=== PATIENT | male | born 1990 | race Caucasian/White ===

== ENCOUNTER 2018-05-19 09:24 | Inpatient (IN) | payer OTHER ==
[~2018-05-19] VITALS: Ht 177.8 cm; Wt 139.3 kg
[2018-05-19] VITALS (14 sets, daily range): BP systolic 135–179; BP diastolic 67–93
[2018-05-19] MEDS ORDERED: LISINOPRIL20 MG PO (09:50)
[2018-05-19] MEDS ORDERED: PROTONIX40 M1 PO (09:52)
[2018-05-19 10:15] LABS: HEMATOCRIT 41.3 % (42.0-52.0); MCH 22.4 pg (26.0-34.0); MCHC 31.4 g/dL (28.0-37.0); MCV 71.3 fL (80.0-100.0); MPV 7.9 fl. (7.2-11.1); NUCLEATED RBCS 0 /100WBC; PLATELET COUNT* 204 thou/uL (150-400); RDW-CV 20.5 % (10.5-14.5); WBC 17.9 thou/uL (4.0-11.0)
[2018-05-19 10:23] LABS: CALCIUM 9.3 mg/dL (8.5-10.1); CREATININE 0.9 mg/dL (0.6-1.3); POTASSIUM 3.3 mmol/L (3.5-5.1)
[2018-05-19 10:24] LABS: APTT 24.6 Seconds (25.0-31.3); INR 1.1
[2018-05-19 10:27] LABS: ALBUMIN 4.2 g/dL (3.4-5.0); TOTAL BILIRUBIN 1.4 mg/dL (<0.1-1.0)
[2018-05-19 10:47] LABS: ABSOLUTE LYMPHOCYTES 0.7 thou/uL (0.8-5.3); ABSOLUTE MONOCYTES 0.2 thou/uL (0.0-1.2)
[2018-05-19 10:48] LABS: ANISOCYTOSIS 2+; HYPOCHROMASIA 1+; MICROCYTES 2+; PLATELET ESTIMATE ADEQUATE; POLYCHROMASIA 1+
[2018-05-19 11:01] LABS: ACETAMINOPHEN < 2 ug/mL (10-30); ALCOHOL < 10 mg/dL (<10)
[2018-05-19 14:18] LABS: HEMATOCRIT 36.1 % (42.0-52.0); HEMOGLOBIN 11.3 gm/dL (14.0-18.0)
[2018-05-19 16:25] LABS: HEMATOCRIT 35.2 % (42.0-52.0); MCH 22.5 pg (26.0-34.0); MCHC 31.2 g/dL (28.0-37.0); MCV 72.2 fL (80.0-100.0); MPV 8.5 fl. (7.2-11.1); RBC 4.87 mil/uL (4.50-6.00); RDW-CV 20.7 % (10.5-14.5); WBC 7.4 thou/uL (4.0-11.0)
--- NOTE | 2018-05-19 16:41 | EKG ---
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 : 1990 Requested By: Gualberto Blood Order Number: [id number] MD: Mathieu Amaro Measurements Intervals [place] Rate: 121 P: 35 [place]: 141 QRS: 9 QRSD: 94 T: -20 QT: 356 QTc: 505 Interpretive Statements Sinus tachycardia poor r wave progression LVH by voltage Nonspecific T abnormalities, inferior leads Prolonged QT interval No previous ECG available for comparison Electronically Signed On 05-19-2018 16:41:50 CDT by Mathieu Amaro [email or web address] <ELECTRONICALLY SIGNED> By: Mathieu Amaro MD, [facility] 05/19/18 1641 1005 1005 Mathieu Amaro MD, [facility] /EPI
[2018-05-19] MEDS ORDERED: PROZAC20 MG PO (18:37)
[2018-05-19] MEDS ORDERED: CLONAZEPAM 1 MG1 M1 PO (18:38)
[2018-05-19 19:48] LABS: URINE BILIRUBIN NEGATIVE (Negative); URINE BLOOD TRACE (Negative); URINE CLARITY CLEAR; URINE COLOR YELLOW; URINE GLUCOSE-RANDOM NEGATIVE (Negative); URINE KETONES 1+ (Negative); URINE LEUKOCYTES-REFLEX NEGATIVE (Negative); URINE NITRITE-REFLEX NEGATIVE (Negative); URINE PROTEIN NEGATIVE (Negative)
[2018-05-20] VITALS (22 sets, daily range): BP systolic 118–169; BP diastolic 66–100
[2018-05-20 04:14] LABS: HEMATOCRIT 33.6 % (42.0-52.0); HEMOGLOBIN 10.6 gm/dL (14.0-18.0); MCH 22.9 pg (26.0-34.0); MCHC 31.5 g/dL (28.0-37.0); MCV 72.7 fL (80.0-100.0); MPV 8.2 fl. (7.2-11.1); RBC 4.62 mil/uL (4.50-6.00); RDW-CV 20.5 % (10.5-14.5); WBC 6.1 thou/uL (4.0-11.0)
[2018-05-20 04:40] LABS: CREATININE 0.7 mg/dL (0.6-1.3); MAGNESIUM 2.2 mg/dL (1.8-2.4); POTASSIUM 3.8 mmol/L (3.5-5.1)
[2018-05-20 09:06] LABS: ALBUMIN 3.2 g/dL (3.4-5.0); CALCIUM 8.2 mg/dL (8.5-10.1); CREATININE 0.7 mg/dL (0.6-1.3); POTASSIUM 3.7 mmol/L (3.5-5.1); TOTAL BILIRUBIN 2.2 mg/dL (<0.1-1.0); TOTAL PROTEIN 7.1 g/dL (6.4-8.2)
[2018-05-20 14:25] LABS: HEMATOCRIT 33.4 % (42.0-52.0); HEMOGLOBIN 10.4 gm/dL (14.0-18.0)
[2018-05-21] VITALS: BP 145/77
[2018-05-21 04:00] VITALS: BP 122/77
[2018-05-21 05:01] LABS: ALBUMIN 3.2 g/dL (3.4-5.0); CALCIUM 7.9 mg/dL (8.5-10.1); CREATININE 0.7 mg/dL (0.6-1.3); HEMATOCRIT 32.4 % (42.0-52.0); HEMOGLOBIN 10.2 gm/dL (14.0-18.0); MAGNESIUM 1.6 mg/dL (1.8-2.4); MCH 22.9 pg (26.0-34.0); MCHC 31.4 g/dL (28.0-37.0); MCV 72.8 fL (80.0-100.0); MPV 8.5 fl. (7.2-11.1); POTASSIUM 3.5 mmol/L (3.5-5.1); RBC 4.45 mil/uL (4.50-6.00); RDW-CV 20.7 % (10.5-14.5); TOTAL BILIRUBIN 1.7 mg/dL (<0.1-1.0); TOTAL PROTEIN 6.8 g/dL (6.4-8.2); WBC 8.9 thou/uL (4.0-11.0)
[2018-05-21 11:50] VITALS: BP 151/104
[2018-05-21 15:16] VITALS: BP 133/70
[2018-05-21 20:00] VITALS: BP 126/64
[2018-05-21 23:59] VITALS: BP 139/84
[2018-05-22 04:00] VITALS: BP 154/99
[2018-05-22 04:55] LABS: HEMATOCRIT 32.7 % (42.0-52.0); HEMOGLOBIN 10.2 gm/dL (14.0-18.0); MCH 23.2 pg (26.0-34.0); MCHC 31.3 g/dL (28.0-37.0); MCV 73.9 fL (80.0-100.0); MPV 8.7 fl. (7.2-11.1); RBC 4.43 mil/uL (4.50-6.00); RDW-CV 20.3 % (10.5-14.5); WBC 8.9 thou/uL (4.0-11.0)
[2018-05-22 05:10] LABS: CREATININE 0.8 mg/dL (0.6-1.3); MAGNESIUM 1.5 mg/dL (1.8-2.4); POTASSIUM 3.8 mmol/L (3.5-5.1)
[2018-05-22 08:30] VITALS: BP 143/94
[2018-05-22] MEDS ORDERED: PROTONIX40 M1 PO (10:03)
[2018-05-22 10:27] VITALS: BP 143/94
[2018-05-22 11:23] VITALS: BP 143/94
== END 2018-05-22 11:15 | disposition home or self-care (01) | DRG 378 ==
LOC: M.ERS 09:24 → M.TBA-ER 11:13 → M.ICU 11:13 → M.2W 05-20 15:39
PROVIDERS: Family Medicine; Internal Medicine Gastroenterology; ADMIT Internal Medicine
PROC: 0W3P8ZZ Control Bleeding in Gastrointestinal Tract, Via Natural or Artificial Opening Endoscopic (ICD-10-PCS; principal; 2018-05-20)
PROC: 3E0G8GC Introduction of Other Therapeutic Substance into Upper GI, Via Natural or Artificial Opening Endoscopic (ICD-10-PCS; principal; 2018-05-20)
DX: K25.0 Acute gastric ulcer with hemorrhage (principal); Z68.41 Body mass index [BMI] 40.0-44.9, adult; I10 Essential (primary) hypertension; K31.82 Dieulafoy lesion (hemorrhagic) of stomach and duodenum; E11.9 Type 2 diabetes mellitus without complications; F32.9 Major depressive disorder, single episode, unspecified; F41.9 Anxiety disorder, unspecified; E66.9 Obesity, unspecified; F10.10 Alcohol abuse, uncomplicated; K21.0 Gastro-esophageal reflux disease with esophagitis; K70.10 Alcoholic hepatitis without ascites; G47.33 Obstructive sleep apnea (adult) (pediatric); S93.401A Sprain of unspecified ligament of right ankle, initial encounter; X58.XXXA Exposure to other specified factors, initial encounter; Y93.89 Activity, other specified; Y92.098 Other place in other non-institutional residence as the place of occurrence of the external cause; Y99.8 Other external cause status; Z79.899 Other long term (current) drug therapy; Z83.3 Family history of diabetes mellitus

== ENCOUNTER 2018-06-02 07:25 | Inpatient (IN) | payer OTHER ==
[~2018-06-02] VITALS: Ht 177.8 cm; Wt 139.7 kg
[2018-06-02] VITALS (9 sets, daily range): BP systolic 134–160; BP diastolic 71–102
[~2018-06-02 07:25] MED LIST: CLONAZEPAM 1 MG1 M1 PO; LISINOPRIL20 MG PO; PROTONIX40 M1 PO; PROZAC20 MG PO
[2018-06-02 07:58] LABS: ANION GAP 27 mmol/L (7-16); BUN 7 mg/dL (7-18); CALCIUM 9.7 mg/dL (8.5-10.1); CHLORIDE 99 mmol/L (98-107); CREATININE 1.3 mg/dL (0.6-1.3); GLUCOSE 162 mg/dL (70-99); POTASSIUM 3.8 mmol/L (3.5-5.1); SODIUM 137 mmol/L (136-145)
[2018-06-02 08:01] LABS: CO2 11 mmol/L (21-32)
[2018-06-02 08:02] LABS: ALBUMIN 4.7 g/dL (3.4-5.0); ALKALINE PHOSPHATASE 316 U/L (46-116); SGOT 131 U/L (15-37); SGPT 180 U/L (30-65); TOTAL BILIRUBIN 2.1 mg/dL (<0.1-1.0); TOTAL PROTEIN 10.2 g/dL (6.4-8.2); TROPONIN-I LEVEL <0.06 ng/mL (<0.06)
[2018-06-02 08:16] LABS: HEMATOCRIT 46.7 % (42.0-52.0); MCH 22.9 pg (26.0-34.0); MCHC 29.9 g/dL (28.0-37.0); MCV 76.4 fL (80.0-100.0); MPV 8.1 fl. (7.2-11.1); NUCLEATED RBCS 0 /100WBC; PLATELET COUNT* 324 thou/uL (150-400); RDW-CV 21.3 % (10.5-14.5); WBC 19.3 thou/uL (4.0-11.0)
[2018-06-02 08:35] LABS: ABSOLUTE BASOPHILS 0.2 thou/uL (0.0-0.2); ABSOLUTE EOSINOPHILS 0.4 thou/uL (0.0-0.7); ABSOLUTE MONOCYTES 1.2 thou/uL (0.0-1.2); ABSOLUTE NEUTROPHILS 11.6 thou/uL (1.6-8.1)
[2018-06-02 08:36] LABS: ANISOCYTOSIS 1+; HYPOCHROMASIA Occasional; MICROCYTES Occasional; PLATELET ESTIMATE ADEQUATE; POIKILOCYTOSIS 1+; POLYCHROMASIA Occasional
[2018-06-02 08:37] LABS: BE -5.7 mmol/L (-2 to +3); HCO3 18.8 mmol/L (22.0-26.0); PCO2 33.9 mmHg (35.0-45.0); pH 7.361 (7.340-7.450)
[2018-06-02 08:38] LABS: PO2 128.7 mmHg (75.0-100.0)
--- NOTE | 2018-06-02 08:45 | NUR ---
PT REPORTED TO DR. ISBELL THAT HE DRINKS TOO MUCH, LAST TIME DRINKING WAS 2 DAYS AGO, DENIES HX OF SEIZURES.
--- NOTE | 2018-06-02 09:08 | NUR ---
PT'S FATHER, NOVA TELLES, CALLED TO CHECK ON PATIENT. AFTER AQUIRING PT CONSENT TO GIVEN HIS FATHER INFORMATION ABOUT PT STAY, NOVA WAS TOLD THAT PT IS A&O X4 AND C/O BACK PAIN, WELL PT WILL BE ADMITTED. PT'S FATHER STATED THAT ONLY ELIZABETH IRENE AND HIMSELF SHOULD RECEIVE ANY PATIENT INFO. PT'S FATHER'S NUMBER IS [phone], REQUESTS TO BE CALLED IF ANY MAJOR CHANGES IN PATIENT HEALTH.
[2018-06-02 10:02] LABS: URINE BILIRUBIN NEGATIVE (Negative); URINE BLOOD 2+ (Negative); URINE CLARITY CLEAR; URINE COLOR YELLOW; URINE GLUCOSE-RANDOM NEGATIVE (Negative); URINE KETONES 1+ (Negative); URINE LEUKOCYTES-REFLEX NEGATIVE (Negative); URINE NITRITE-REFLEX NEGATIVE (Negative); URINE PROTEIN 2+ (Negative); URINE SPECIFIC GRAVITY 1.025 (1.005-1.030); URINE UROBILINOGEN 0.2 E.U./dl (0.2-1.0)
[2018-06-02 10:13] LABS: AMP/METHAMP Negative (Negative); BARBITURATES Negative (Negative); BENZODIAZEPINES Negative (Negative); COCAINE Negative (Negative); METHADONE Negative (Negative); OPIATES Negative (Negative); PCP Negative (Negative); THC POSITIVE (Negative)
[2018-06-02 10:56] LABS: BACTERIA-REFLEX 1-9 Few /HPF (None Seen); SQUAMOUS 4-10 Moderate /LPF (0-3); URINE RBC 3-10 Few /HPF (0-2); URINE WBC-REFLEX 0-5 Rare /HPF (0-5)
[2018-06-02 10:57] LABS: CRYSTALS None Seen /LPF (None Seen); HYALINE CASTS 0-3 Few /LPF (None Seen)
--- NOTE | 2018-06-02 12:54 | NUR ---
PT ADMITTED FROM ER FOR ETOH WITHDRAWL WITH SEIZURE. SEIZURE PRECAUTIONS INITIATED. PADS PLACED ON BED RAILS. IV FLUIDS INFUSING WELL. PT VERY DROWSY. FELL ASLEEP FREQUNTLY DURING ASSESSMENT. CIWA SCORES 7 X2. NEUROLOGY HERE TO SEE PT. EEG COMPLETED. FALL PRECAUTIONS IN PLACE INCLUDING BED ALARM.
--- NOTE | 2018-06-02 14:46 | NUR ---
1400 ASSUMED CARE OF PATIENT. TO RADIOLOGY PER WHEELCHAIR ACCOMPANIED BY RN. PT ABLE TO TRANSFER SLOWLY BUT STEADILY FROM WHEELCHAIR TO BED. SPOUSE AT BEDSIDE.
--- NOTE | 2018-06-02 15:04 | NUR ---
X RAY RESULTS TO DR CARRILLO. ORDERS NOTED. SPOUSE FILLING OUT MRI QUESTIONAIRRE
--- NOTE | 2018-06-02 16:15 | NUR ---
1520 TO MRO PER WHEELCHAIR ACCOMPANIED BY RN. ABLE TO ONLY COMPLETE PART OF MRI DUE TO PT C/O "BURNING OF SKIN,ITCHY,ANXIOUS." MRI EDITED FOR TOMORROW. DISCUSSED WITH PATIENT THE INDICATIONS FOR MRI. HE IS WILLING TO TRY AGAIN TOMORROW
--- NOTE | 2018-06-02 17:01 | NUR ---
REPORT TO JACQUIE [place]
--- NOTE | 2018-06-02 17:58 | EKG ---
[place] [address] ELECTROCARDIOGRAM REPORT Name: ROHIT IRENE Room: [address] ADM IN [facility]#: [id number] Admission: 06/02/18 Attend Phys: Romaine Arrington MD Discharge: Date of : 86 Report #: [id number] THIS REPORT FOR: //name// [facility] ED Test Date: 2018-06-02 Test Time: 07:38:52 Pat Name: ROHIT IRENE Department: Room: [facility] Gender: Deadener: Roderick QUILES : 1990 Requested By: Tim Mina Order Number: [id number] MD: Shailesh Fischer Measurements Intervals [place] Rate: 125 P: 65 [place]: 113 QRS: 20 QRSD: 94 T: 0 QT: 351 QTc: 507 Interpretive Statements Sinus tachycardia Borderline T abnormalities, inferior leads Prolonged QT interval Baseline wander in lead(s) II,V1 Compared to ECG 05/19/2018 10:05:02 Poor R-wave progression no longer present Left ventricular hypertrophy no longer present T-wave abnormality still present Electronically Signed On 06-02-2018 17:58:10 CDT by Shailesh Fischer [email or web address] <ELECTRONICALLY SIGNED> By: Shailesh Fischer MD, FACC 06/02/18 1758 7 7 Shailesh Fischer MD, FACC /EPI
--- NOTE | 2018-06-02 18:21 | NUR ---
RN RESUMED CARE OF PT THIS EVENING. PT SLOWLY PROGRESSING TOWARDS GOALS. PT IS LETHARGIC, AROUSES TO VOICE, OBEYS COMMANDS. PT DENIES PAIN AT THIS TIME. NO SEIZURE LIKE ACTIVITY NOTED. SEIZURE PRECAUTIONS REMAIN IN PLACE. BED ALARM ON. VSS. ON 2L NC AND AFEBRILE. NO FAMILY AT BEDSIDE. PT DENIES FURTHER QUESTIONS/CONCERNS.
[2018-06-03] VITALS (12 sets, daily range): BP systolic 118–179; BP diastolic 72–101
[2018-06-03 02:35] LABS: ABSOLUTE BASOPHILS 0.1 thou/uL (0.0-0.2); ABSOLUTE EOSINOPHILS 0.2 thou/uL (0.0-0.7); ABSOLUTE LYMPHOCYTES 1.7 thou/uL (0.8-5.3); ABSOLUTE MONOCYTES 0.5 thou/uL (0.0-1.2); ABSOLUTE NEUTROPHILS 5.4 thou/uL (1.6-8.1); EOSINOPHILS 2.3 %; HEMATOCRIT 35.8 % (42.0-52.0); LYMPHOCYTES 21.5 %; MCH 22.9 pg (26.0-34.0); MCHC 31.3 g/dL (28.0-37.0); MCV 73.3 fL (80.0-100.0); MONOCYTES 6.7 %; MPV 7.4 fl. (7.2-11.1); NUCLEATED RBCS 0 /100WBC; POLYS 68.5 %; RBC 4.88 mil/uL (4.50-6.00); RDW-CV 20.9 % (10.5-14.5); WBC 7.9 thou/uL (4.0-11.0)
[2018-06-03 03:13] LABS: CALCIUM 7.9 mg/dL (8.5-10.1); CREATININE 0.6 mg/dL (0.6-1.3); POTASSIUM 3.2 mmol/L (3.5-5.1)
[2018-06-03 03:16] LABS: HEMOGLOBIN 11.2 gm/dL (14.0-18.0); PLATELET COUNT* 168 thou/uL (150-400)
[2018-06-03 03:47] LABS: ANISOCYTOSIS 1+; HYPOCHROMASIA 2+; MACROCYTES Occasional; MICROCYTES 1+; OVALOCYTES Occasional; SCHISTOCYTES Occasional; TEARDROPS Occasional
--- NOTE | 2018-06-03 05:02 | NUR ---
ASSUMED CARE OF PT AT 1900 PT ALERT AND ORIENTED X4 VS AND ASSESSMENT STABLE. PT RUNNING NS TO ST ON THE TELE MONITOR. CIWAS Q2H HAVE REMAINED AT 4. PT C/O BACK PAIN NOT RELIEVED BY OXYCODONE OBTAINED ORDERS FOR PRN IBUPROFEN AND ADMINISTERED X 1 THEN PT SLEPT THROUGH THE NIGHT AND ONLY AWOKE ONCE FOR PRN OXYCODONE PROVIDED HEAT PACK FOR PT THEN PT SLEPT THE REST OF THE NIGHT. WILL CONTINUE PLAN OF CARE.
--- NOTE | 2018-06-03 08:20 | NUR ---
PATIENT CARE ASSUMED AT 0700. PATIENT RESTING WITH EYES CLOSED IN BED UPON ASSUMING CARE. AWOKEN TO VOICE. PATIENT REPORTS HEADACHE/BACK PAIN. PRN TYLENOL AND OXY IR GIVEN PER PATIENT REQUEST. AWAITING RESULTS. CIWA 1 AT THIS TIME FOR HEADACHE, BUT DENIES ALL OTHER SYMPTOMS. AOX4. PATIENT CONCERNT THIS MORNING IS TO HAVE A SHOWER. BILINGUAL CUSTOMER SERVICE NOTIFIED, SKI EDGE PAINTER COMING TO ICU TO TAKE PATIENT TO TELEMETRY FLOOR TO SHOWER. REPORTS NO APPETITE, REFUSING BREAKFAST TRAY AT THIS TIME. BG 116. OTHERWISE CALM, COOPERATIVE. DENIES NEW CONCERNS ABOUT PATIENT CARE. WILL CONTINUE WITH CURRENT PLAN OF CARE.
--- NOTE | 2018-06-03 09:46 | NUR ---
Nutrition: Consult received for diet instruction. Pt admitted with ETOH w/d. H/o ETOHism (1.5L per day), PUD w/ hemorrhage, hiatal hernia, OBE, HTN. Wt fluctuating ~300#. Albumin 4.7. No appetite, refused BKFST. C/o RODRIGUES and back pain. Per progress notes, pt wants inpatient ETOH rehab. Will defer nutrition education at this time. Hopeful pt can go to inpatient rehab. RECOMMEND MVI. Poor nutrition quality of life R/T lifestyle AEB ETOHism.
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
--- NOTE | 2018-06-03 12:34 | CON ---
[address] [address] CONSULTATION Name: ROHIT IRENE Room: [address] IN .R.#: [id number] Admission: 06/02/18 Attend Phys: Romaine Arrington MD Discharge: Date of : 86 Report #: [id number] THIS REPORT FOR: //name// CC: Romaine Arrington [facility] physician/PCP DATE OF SERVICE: 06/02/2018 HISTORY OF PRESENT ILLNESS: This is a 27-year-old male patient who was evaluated by me for seizure. He indicated that he had a seizure yesterday. He does not remember anything about that seizure. I reviewed the records from the Emergency Room and it looks like the patient was foaming at the mouth. He was in postictal state. He feels back to his baseline. He has an extensive history of alcohol abuse. REVIEW OF SYSTEMS: Indicates that he was diagnosed with sleep apnea. He was recommended to put CPAP on while sleeping, but he does not do that. He does have a history of anxiety and depression. He was complaining of some back pain, but is not complaining of any now. His 14-point review of system was carried out both from the records as well as from the patient himself and that looks mostly unremarkable. PAST MEDICAL HISTORY: Positive for alcohol withdrawal, but is negative for any seizures. FAMILY HISTORY: Negative for any congenital epilepsies. SOCIAL HISTORY: He has a history of heavy alcohol abuse. PHYSICAL EXAMINATION: The patient's examination indicate that the patient is somewhat sleepy. He wakes up. When he wakes up, he can follow simple commands. He is oriented. His speech looks intact. Cranial nerve examination 2-12 indicates symmetrical examination. The patient has a symmetrical motor, sensory, reflex examinations and tone. There is no meningeal sign. There is no carotid bruit. The patient is obese, but does not have any hearing problems. His vision looks adequate. Cardiac examination looks unremarkable. Respiratory examination does not appear to be showing any respiratory difficulty. Blood pressure is 184/96, pulse is 100 and temperature is 97.6. LABORATORY DATA: Indicate a white count of 19.3. His magnesium was 1.5 and liver function was abnormal. He did have a CT scan of the head on admission and that appear unremarkable. Presently, he is getting an EEG done. IMPRESSION: 1. Alcohol-related seizure. 2. Increased white count is probably because of seizures, [place] [address] CONSULTATION Name: ROHIT IRENE Room: [address]#: [id number] Admission: 06/02/18 Attend Phys: Romaine Arrington MD Discharge: Date of : 86 Report #: [id number] watched for any FIRE CREW SPECIALIST infection. RECOMMENDATION: I discussed his options with him. He must stop drinking alcohol altogether. We will look at the EEG. Once he is stabilized, we might do an MRI. He must take care of his sleep apnea. That will be another predisposing factor for seizure if he does not take care of that. He also needs to take seizure precautions and I discussed those with him. He cannot drive for 6 months. All of it was discussed with the patient in detail. Thank you very much for this referral and if you have any question, please feel free to contact me. <ELECTRONICALLY SIGNED> By: Cortez West MD 06/03/18 1234 1344 [id number] West MD /nt
--- NOTE | 2018-06-03 12:34 | EEG ---
[address] [address] EEG STUDY REPORT Name: ROHIT IRENE Room: [address] IN ..#: [id number] Admission: 06/02/18 Attend Phys: Romaine Arrington MD Discharge: Date of : 86 Report #: [id number] THIS REPORT FOR: //name// CC: Romaine Arrington [facility] physician/PCP DATE OF SERVICE: 06/02/2018 This patient is being evaluated for the possibility of seizure. EEG was done by placing the electrodes by standard 10-20 system of electrode placement. Both referential and sequential montages were used for recording. Background activity in this patient's EEG is about 11 Hz and 40 microvolt. It is a very well-formed background activity. The patient goes to sleep and that is associated with bilaterally symmetrical sleep spindles and vertex sharp waves. Photic stimulation was unremarkable. Throughout the record, no active epileptiform activity was noticed. IMPRESSION: This patient's EEG is within normal limits. Thank you very much for this referral. <ELECTRONICALLY SIGNED> By: Cortez West MD 06/03/18 1234 1602 1731Proel West MD /nt
--- NOTE | 2018-06-03 17:55 | NUR ---
PATIENT ASSESSMENT REMAINED STABLE THROUGHOUT SHIFT. VITALS WNL. TRACING NSR ON CARDIC MONITOR. CARDIZEM HELD PATIENT NO LONGER TACHY AND MOSTLY IN 60S. BLOOD PRESSURES HIGH THROUGHOUT SHIFT, MORE CONTROLLED AFTER PRN PO CLONIDINE GIVEN. AFEBRILE. PATIENT O2 SAT HIGH 90S ON ROOM AIR. DOES HAVE SLEEP APNEA, BUT O2 SATS DO NOT DROP WHILE SLEEPING. PATIENT CIWA MAX 3 FOR SWEATS AND HEADACHE. PATIENT REPORTS COLD SWEATS. SHOWER GIVEN THIS AM PER REQUEST. NO PRN ATIVAN GIVEN. PO OXYCODONE GIVEN X2 PER PATIENT REQUEST FOR CHRONIC BACK PAIN. DOES NOT TAKE MEDICATIONS FOR THIS AT HOME. PLEASANT AND COOPERATIVE WITH CARE. MODERATE APPETITE NOTED THROUGHOUT SHIFT. NO SLIDING SCALE INSULIN REQUIRED. PATIENT VOIDING PER URINAL ADEQUATELY, URINE COLOR DARK AND CONCENTRATED. CASE MANAGEMENT GAVE PATIENT RESOURCES FOR INPATIENT ALCOHOL TREATMENT PROGRAMS. DENIES FURTHER CONCERNS ABOUT CARE.
[2018-06-04] VITALS (9 sets, daily range): BP systolic 116–139; BP diastolic 72–84
[2018-06-04 04:43] LABS: ABSOLUTE BASOPHILS 0.1 thou/uL (0.0-0.2); ABSOLUTE EOSINOPHILS 0.4 thou/uL (0.0-0.7); ABSOLUTE LYMPHOCYTES 1.8 thou/uL (0.8-5.3); ABSOLUTE MONOCYTES 0.4 thou/uL (0.0-1.2); ABSOLUTE NEUTROPHILS 3.8 thou/uL (1.6-8.1); BASOPHILS 1.5 %; EOSINOPHILS 6.3 %; HEMATOCRIT 35.6 % (42.0-52.0); HEMOGLOBIN 11.1 gm/dL (14.0-18.0); LYMPHOCYTES 27.4 %; MCH 22.9 pg (26.0-34.0); MCHC 31.3 g/dL (28.0-37.0); MCV 73.4 fL (80.0-100.0); MONOCYTES 6.4 %; MPV 7.9 fl. (7.2-11.1); NUCLEATED RBCS 0 /100WBC; PLATELET COUNT* 163 thou/uL (150-400); POLYS 58.4 %; RBC 4.86 mil/uL (4.50-6.00); RDW-CV 20.6 % (10.5-14.5); WBC 6.4 thou/uL (4.0-11.0)
[2018-06-04 04:53] LABS: CALCIUM 8.3 mg/dL (8.5-10.1); CREATININE 0.7 mg/dL (0.6-1.3); MAGNESIUM 1.7 mg/dL (1.8-2.4); POTASSIUM 4.3 mmol/L (3.5-5.1)
--- NOTE | 2018-06-04 06:32 | NUR ---
PROGRESSING TOWARD GOALS. CIWA SCORE CURRENTLY 1, PT SLEEPING COMFORTABLY. ATIVAN GIVEN X1 PER ETOH W/D PROTOCOL FIR CIWA SCORE 8, PT REPORTED IMPROVED RODRIGUES, ANXIETY, AND DIAPHORESIS AFTER ATIVAN. DENIES NAUSEA, TOLERATING PO INTAKE. PT REPORTED DESIRE FOR [facility] SOBRIETY, ENCOURAGED OUTPT AA ATTENDANCE WHICH PT STATED HE IS OPEN TO. VSS. CALL LIGHT WITHIN REACH.
[2018-06-04] MEDS ORDERED: VITAMIN B-1100 M1 PO (07:46)
--- NOTE | 2018-06-04 10:10 | NUR ---
PT HAS DC ORDERS, MET WITH BRIEFLY WITH HIM AND /QUENTIN AT BEDSIDE. WENT OVER ETOH OPTIONS AND F/U CLINICS AGAIN. PT STATED HE PLANNED TO F/U WITH COMPREHENS[facility] MENTAL HE[facility] AND WAS GOING TO CALL TODAY TO GET APPT. ALSO ENCOURAGED HIM TO CONTACT [facility] IN [place] TO GET F/U WITH A PCP. HE STATED HE WOULD CALL.
--- NOTE | 2018-06-04 10:34 | NUR ---
PT DISCHARGED TO HOME VIA WHEELCHAIR BY NURSING STAFF. DISCHARGE INSTRUCTIONS WENT OVER WITH PATIENT WITH NO QUESTIONS AT THIS TIME. PRESCRIPTION SENT WITH PATIENT.
== END 2018-06-04 10:25 | disposition home or self-care (01) | DRG 101 ==
LOC: M.ERS 07:25 → M.TBA-ER 08:55 → M.ICU 08:55
PROVIDERS: Emergency Medicine Emergency Medical Services; Internal Medicine; ADMIT Internal Medicine
DX: R56.9 Unspecified convulsions (principal); F10.239 Alcohol dependence with withdrawal, unspecified; E87.2 Acidosis; I10 Essential (primary) hypertension; E11.9 Type 2 diabetes mellitus without complications; F32.9 Major depressive disorder, single episode, unspecified; F41.9 Anxiety disorder, unspecified; G89.29 Other chronic pain; Z71.41 Alcohol abuse counseling and surveillance of alcoholic; Z87.81 Personal history of (healed) traumatic fracture; Z79.899 Other long term (current) drug therapy

== ENCOUNTER 2019-08-17 01:02 | Emergency (ER) | payer OTHER ==
[~2019-08-17] VITALS: Ht 177.8 cm; Wt 140.6 kg
[~2019-08-17 01:02] MED LIST changes: +VITAMIN B-1100 M1 PO
[2019-08-17 01:37] LABS: ABSOLUTE BASOPHILS 0.1 thou/uL (0.0-0.2); ABSOLUTE EOSINOPHILS 0.1 thou/uL (0.0-0.7); ABSOLUTE LYMPHOCYTES 1.4 thou/uL (0.8-5.3); ABSOLUTE MONOCYTES 0.5 thou/uL (0.0-1.2); ABSOLUTE NEUTROPHILS 5.2 thou/uL (1.6-8.1); BASOPHILS 0.8 %; EOSINOPHILS 1.8 %; HEMATOCRIT 45.5 % (42.0-52.0); HEMOGLOBIN 15.3 gm/dL (14.0-18.0); LYMPHOCYTES 18.6 %; MCH 28.7 pg (26.0-34.0); MCHC 33.7 g/dL (28.0-37.0); MCV 85.2 fL (80.0-100.0); MONOCYTES 7.4 %; MPV 8.6 fl. (7.2-11.1); NUCLEATED RBCS 0 /100WBC; PLATELET COUNT* 99 thou/uL (150-400); POLYS 71.4 %; RBC 5.34 mil/uL (4.50-6.00); WBC 7.3 thou/uL (4.0-11.0)
[2019-08-17 01:42] LABS: CALCIUM 9.6 mg/dL (8.5-10.1); CREATININE 0.8 mg/dL (0.6-1.3); POTASSIUM 3.3 mmol/L (3.5-5.1)
[2019-08-17 01:47] LABS: TOTAL BILIRUBIN 2.1 mg/dL (<0.1-1.0)
[2019-08-17] MEDS ORDERED: CARVEDILOL PO (02:09)
[2019-08-17 03:51] LABS: URINE BLOOD NEGATIVE (Negative); URINE CLARITY CLEAR; URINE COLOR YELLOW; URINE GLUCOSE-RANDOM TRACE (Negative); URINE KETONES 1+ (Negative); URINE LEUKOCYTES NEGATIVE (Negative); URINE NITRITE NEGATIVE (Negative); URINE PROTEIN 3+ (Negative)
[2019-08-17 03:52] LABS: AMP/METHAMP Negative (Negative); BARBITURATES Negative (Negative); BENZODIAZEPINES Negative (Negative); COCAINE Negative (Negative); METHADONE Negative (Negative); OPIATES Negative (Negative); PCP Negative (Negative); THC POSITIVE (Negative)
[2019-08-17 03:53] LABS: URINE BILIRUBIN 2+ (Negative)
[2019-08-17 03:54] LABS: ICTOTEST (BILI CONFIRMATORY) Positive (Negative)
[2019-08-17] MEDS ORDERED: ZOFRAN ODT4 MG PO (04:10)
[2019-08-17] MEDS ORDERED: CHLORDIAZEPOXID25 M1 PO (04:10)
[2019-08-17 04:17] LABS: CASTS None Seen /LPF (None Seen); MUCUS 4-6 Moderate strn/LPF (None Seen); SQUAMOUS >10 Many /LPF (0-3)
[2019-08-17 04:18] LABS: URINE WBC 0-5 Rare /HPF (0-5)
[2019-08-17 04:19] LABS: BACTERIA 1-9 Few /HPF (None Seen); CRYSTALS None Seen /LPF (None Seen); URINE RBC None Seen /HPF (0-2)
[2019-08-17 05:00] VITALS: BP 137/77
--- NOTE | 2019-08-17 09:52 | EKG ---
[place] [address] ELECTROCARDIOGRAM REPORT Name: ROHIT IRENE Room: [facility]#: [id number] Admission: 08/17/19 Attend Phys: Discharge: 08/17/19 Date of : 86 Report #: [id number] THIS REPORT FOR: //name// 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[place] : 1990 Requested By: Saloni Segovia Order Number: [id number] MD: Mathieu Amaro Measurements Intervals [place] Rate: 99 P: 19 [place]: 127 QRS: 23 QRSD: 90 T: 4 QT: 371 QTc: 477 Interpretive Statements Sinus rhythm Probable left atrial enlargement Borderline prolonged QT interval Baseline wander in lead(s) V1 Compared to ECG 06/02/2018 07:38:52 Sinus tachycardia no longer present Electronically Signed On 08-17-2019 9:52:40 VP PRODUCTION by Mathieu Amaro [email or web address] <ELECTRONICALLY SIGNED> By: Mathieu Amaro MD, [facility] 08/17/19 0952 0108 0108 Mathieu Amaro MD, [facility] /EPI
== END 2019-08-17 05:00 | disposition home or self-care (01) ==
LOC: M.ERS 01:02
PROVIDERS: Personal Emergency Response Attendant
DX: F10.129 Alcohol abuse with intoxication, unspecified (principal); Y90.0 Blood alcohol level of less than 20 mg/100 ml; R11.2 Nausea with vomiting, unspecified; I10 Essential (primary) hypertension; E11.9 Type 2 diabetes mellitus without complications; F32.9 Major depressive disorder, single episode, unspecified; G47.30 Sleep apnea, unspecified; Z79.899 Other long term (current) drug therapy

== ENCOUNTER 2019-11-20 00:26 | Inpatient (IN) | payer OTHER ==
[2019-11-20] VITALS (10 sets, daily range): BP systolic 133–179; BP diastolic 68–101
[~2019-11-20] VITALS: Ht 180.3 cm; Wt 123.2 kg
[~2019-11-20 00:26] MED LIST changes: +CARVEDILOL PO; +CHLORDIAZEPOXID25 M1 PO; +ZOFRAN ODT4 MG PO
[2019-11-20 01:37] LABS: ABSOLUTE EOSINOPHILS 0.2 thou/uL (0.0-0.7); ABSOLUTE NEUTROPHILS 5.1 thou/uL (1.6-8.1); BASOPHILS 0.2 %; EOSINOPHILS 1.9 %; HEMATOCRIT 44.8 % (42.0-52.0); HEMOGLOBIN 15.3 gm/dL (14.0-18.0); LYMPHOCYTES 32.7 %; MCH 27.7 pg (26.0-34.0); MCHC 34.1 g/dL (28.0-37.0); MCV 81.4 fL (80.0-100.0); MONOCYTES 10.3 %; MPV 7.5 fl. (7.2-11.1); NUCLEATED RBCS 0 /100WBC; PLATELET COUNT* 190 thou/uL (150-400); POLYS 54.9 %; RBC 5.51 mil/uL (4.50-6.00); RDW-CV 18.3 % (10.5-14.5); WBC 9.3 thou/uL (4.0-11.0)
[2019-11-20 01:46] LABS: CREATININE 0.6 mg/dL (0.6-1.3); POTASSIUM 3.6 mmol/L (3.5-5.1)
[2019-11-20 01:49] LABS: APTT 28.2 Seconds (25.0-31.3); INR 1.2; PROTIME 12.2 Seconds (9.20-11.50)
[2019-11-20 01:51] LABS: ALBUMIN 3.8 g/dL (3.4-5.0); TOTAL BILIRUBIN 1.2 mg/dL (<0.1-1.0)
[2019-11-20 02:06] LABS: URINE BILIRUBIN NEGATIVE (Negative); URINE BLOOD NEGATIVE (Negative); URINE CLARITY CLEAR; URINE COLOR YELLOW; URINE GLUCOSE-RANDOM NEGATIVE (Negative); URINE KETONES NEGATIVE (Negative); URINE LEUKOCYTES-REFLEX NEGATIVE (Negative); URINE NITRITE-REFLEX NEGATIVE (Negative); URINE PROTEIN 2+ (Negative)
[2019-11-20 03:03] LABS: SQUAMOUS 0-3 Few /LPF (0-3)
[2019-11-20 03:04] LABS: BACTERIA-REFLEX 1-9 Few /HPF (None Seen); CASTS None Seen /LPF (None Seen); CRYSTALS None Seen /LPF (None Seen); URINE RBC 0-2 Rare /HPF (0-2); URINE WBC-REFLEX 0-5 Rare /HPF (0-5)
[2019-11-20 05:17] LABS: AMP/METHAMP Negative (Negative); BARBITURATES Negative (Negative); BENZODIAZEPINES Negative (Negative); COCAINE Negative (Negative); METHADONE Negative (Negative); OPIATES Negative (Negative); PCP Negative (Negative); THC Negative (Negative)
--- NOTE | 2019-11-20 07:58 | NUR ---
RECEIVED REPORT AND ASSUMED CARE AT 0418. PT TRANSPORTED FROM ED TO ROOM 206. PT DENIES COMPLAINTS OF PAIN. ASSESSMENT AND ADMISSION COMPLETED CHARTED. PT ORIENTATED TO ROOM, FALL POLICY, CALL LIGHT, BED LOCKED IN LOWEST POSITION, CALL LIGHT WITHIN REACH, BED ALARM ON. SEIZURE PRECAUTIONS IN PLACE. CIWA 11. PT REPORTED PREVIOUSLY TAKING PAXIL 10MG DAILY. STOPPED TAKING THIS MEDICATION 2.5-[address] ORDERS. STATES HE FELT LIKE HE WAS ON A "EMOTIONAL ROLLER COASTER" SO HE STOPPED TAKING THEM FIFTH OF LIQUOR DAILY UNTIL THIS PAST WEEK. 6 PACK DAILY WHILE TRYING TO WEAN SELF. 11/19/19 DRANK 30 PACK OF BEER. LAST SEIZURE REPORTED BY PT WAS 2 WEEKS AGO WHEN ATTEMPTING TO STOP DRINKING.
[2019-11-20 08:01] LABS: CALCIUM 7.3 mg/dL (8.5-10.1); PHOSPHORUS* 3.8 mg/dL (2.5-4.9)
--- NOTE | 2019-11-20 15:08 | EKG ---
[place] [address] ELECTROCARDIOGRAM REPORT Name: IRENEROHIT Room: [address] ADM IN .R.#: [id number] Admission: 11/20/19 Attend Phys: Christiano Merino, Discharge: Date of : 86 Date of Service: 11/20/19 0052 Report #: [id number] THIS REPORT FOR: //name// [facility] ED Test Date: 2019-11-20 Test Time: 00:52:15 Pat Name: ROHIT IRENE Department: Room: [facility] Gender: M Sales Enablement Lead: JAMAR : 1990 Requested By: Tim Mina Order Number: [id number] MD: Nabeel Rutherford Measurements Intervals [place] Rate: 128 P: 39 [place]: 140 QRS: 6 QRSD: 92 T: 9 QT: 297 QTc: 434 Interpretive Statements Sinus tachycardia Consider anterior infarct Baseline wander in lead(s) V2 Compared to ECG 08/17/2019 01:08:24 Myocardial infarct finding now present Sinus rhythm no longer present Electronically Signed On 11-20-2019 15:07:18 MANAGER ATHLETICS by Nabeel Rutherford [email or web address] <ELECTRONICALLY SIGNED> By: Demetrio Rutherofrd MD, [facility] 11/20/19 1507 Demetrio Rutherford MD, [facility] /EPI
--- NOTE | 2019-11-20 16:41 | NUR ---
APPROX 1600, TELEMETRY SHOWS PATIENT TACHYCARDIC, 170-180. PATIENT STATES HAS CHEST PRESSURE. VS OBTAINED AND DOCUMENTED. BLOOD GLUCOSE OBTAINED. PHYSICIAN CONTACTED, ORDERS RECEIVED. EKG ORDERED AND OBTAINED. EKG RESULTS: SVT. ENCOURAGED PATIENT TO BEAR DOWN FOR VASOVAGAL MANUEVER. LABETELOL GIVEN. APPROX 1622, PATIENT'S HEART RATE 105. PATIENT ORIENTED X4 THROUGHOUT EPISODE. VS OBTAINED AND DOCUMENTED WITH RESOLUTION OF TACHYCARDIA. PATIENT RESTING WITH EYES CLOSED. CHEST PRESSURE ASSESSED. PATIENT STATES "IT'S BETTER." RATES 7/10.
[2019-11-21 02:06] LABS: HEPATITIS B SURFACE AG Negative (Negative)
[2019-11-21 03:30] VITALS: BP 148/85
[2019-11-21 06:18] LABS: HEMATOCRIT 37.7 % (42.0-52.0); MCH 27.3 pg (26.0-34.0); MCV 82.7 fL (80.0-100.0); MPV 7.3 fl. (7.2-11.1); RBC 4.56 mil/uL (4.50-6.00); RDW-CV 17.7 % (10.5-14.5); WBC 4.3 thou/uL (4.0-11.0)
[2019-11-21 06:19] LABS: HEMOGLOBIN 12.4 gm/dL (14.0-18.0)
[2019-11-21 06:29] LABS: ALBUMIN 2.9 g/dL (3.4-5.0); MAGNESIUM 1.4 mg/dL (1.8-2.4); POTASSIUM 3.4 mmol/L (3.5-5.1)
[2019-11-21 06:44] LABS: CALCIUM 7.3 mg/dL (8.5-10.1); CREATININE 0.6 mg/dL (0.6-1.3); TOTAL BILIRUBIN 2.8 mg/dL (<0.1-1.0); TOTAL PROTEIN 6.8 g/dL (6.4-8.2)
--- NOTE | 2019-11-21 06:53 | NUR ---
VSS. SEE MAR. SEE CHARTING. FALL PRECAUTIONS IN PLACE. HOURLY ROUNDING FOR SAFETY.
[2019-11-21 08:00] VITALS: BP 140/88
[2019-11-21 12:00] VITALS: BP 143/85
[2019-11-21 14:09] LABS: HIV-1/HIV-2 ANTIBODY Non Reactive (Non Reactive)
[2019-11-21 16:00] VITALS: BP 159/98
--- NOTE | 2019-11-21 16:45 | EKG ---
[place] [address] ELECTROCARDIOGRAM REPORT Name: ROHIT IRENE Room: [address] ADM IN M.R.#: [id number] Admission: 11/20/19 Attend Phys: Christiano Meirno, Discharge: Date of : 86 Date of Service: 11/20/19 1615 Report #: [id number] THIS REPORT FOR: //name// [facility] Test Date: 2019-11-20 Test Time: 16:15:04 Pat Name: ROHIT IRENE Department: Room: [address] Gender: M Voice Engineer: NEGRA : 1990 Requested By: Jessica Schaefer Order Number: [id number] MD: Obie Wynne Measurements Intervals [place] Rate: 211 P: -9 [place]: 133 QRS: 30 QRSD: 82 T: -16 QT: 249 QTc: 467 Interpretive Statements Supraventricular tachycardia Repolarization abnormality, prob rate related Baseline wander in lead(s) III,V1 Compared to ECG 11/20/2019 00:52:15 Early repolarization now present Sinus tachycardia no longer present Myocardial infarct finding no longer present Electronically Signed On 11-21-2019 16:44:57 BUSINESS MANAGEMENT CONSULTANT by Obie Wynne [email or web address] <ELECTRONICALLY SIGNED> By: Obie Wynne MD, [facility] 11/21/19 1644 1615 1615 Obie Wynne MD, [facility] /EPI
--- NOTE | 2019-11-21 18:17 | NUR ---
PATIENT REMAINS ON BEDREST. HAD LARGE MELENA EMESIS. CO STOMACH DISCOMFORT. CIWA REMAINS 16. PT CALM WITH ATIVAN. NPO FOR EGD IN AM.
[2019-11-21 19:30] VITALS: BP 139/78
[2019-11-21 22:07] LABS: GLYCOHEMOGLOBIN (HGB A1C) 5.9 % (4.8-5.6)
[2019-11-22 00:14] VITALS: BP 125/76
[2019-11-22 04:41] VITALS: BP 142/84
[2019-11-22 07:00] LABS: ABSOLUTE EOSINOPHILS 0.3 thou/uL (0.0-0.7); ABSOLUTE LYMPHOCYTES 1.1 thou/uL (0.8-5.3); ABSOLUTE MONOCYTES 0.3 thou/uL (0.0-1.2); ABSOLUTE NEUTROPHILS 2.9 thou/uL (1.6-8.1); BASOPHILS 0.6 %; EOSINOPHILS 7.5 %; HEMOGLOBIN 11.7 gm/dL (14.0-18.0); LYMPHOCYTES 22.9 %; MCH 27.9 pg (26.0-34.0); MCHC 33.5 g/dL (28.0-37.0); MCV 83.3 fL (80.0-100.0); MONOCYTES 5.5 %; MPV 7.9 fl. (7.2-11.1); NUCLEATED RBCS 0 /100WBC; PLATELET COUNT* 85 thou/uL (150-400); POLYS 63.5 %; RBC 4.19 mil/uL (4.50-6.00); RDW-CV 17.2 % (10.5-14.5); WBC 4.6 thou/uL (4.0-11.0)
--- NOTE | 2019-11-22 07:23 | NUR ---
VSS. SEE MAR. SEE CHARTING. FALL PRECAUTIONS IN PLACE. HOURLY ROUNIDNG FOR SAFETY.
[2019-11-22 07:31] LABS: % SATURATION 85 % (20-39); IRON 306 ug/dL (50-175)
[2019-11-22 07:42] LABS: ALBUMIN 2.8 g/dL (3.4-5.0); CALCIUM 7.5 mg/dL (8.5-10.1); CREATININE 0.7 mg/dL (0.6-1.3); MAGNESIUM 1.5 mg/dL (1.8-2.4); PHOSPHORUS* 3.4 mg/dL (2.5-4.9); POTASSIUM 3.8 mmol/L (3.5-5.1); TOTAL BILIRUBIN 3.2 mg/dL (<0.1-1.0); TOTAL PROTEIN 6.7 g/dL (6.4-8.2)
[2019-11-22 10:08] VITALS: BP 137/80
[2019-11-22 11:24] VITALS: BP 144/93
[2019-11-22 12:07] LABS: IgG 1266 mg/dL (700-1600); IgM 59 mg/dL (20-172)
--- NOTE | 2019-11-22 13:28 | NUR ---
Pt is A&O. Resides at home. Independent. No DME. No hx of HH or SNF. Spoke with Dr, Pt will need ETOH treatment info. Pt out of room at EGD. Following.
[2019-11-22 16:31] VITALS: BP 133/82
--- NOTE | 2019-11-22 16:55 | NUR ---
ASSUMED CARE OF PT AROUND 0730 THIS AM. REFER TO ASSESSMENT. PT DROWSY MOST THIS SHIFT. REQUESTED ATIVAN ONCE FOR ANXIETY. CIWA AROUND 7-10 THIS SHIFT. EGD COMPLETED. REFER TO RESULTS. PT CONTINUES ON PROTONIX GTT AND OCTREOTIDE GTT. PT ANTICIPATED TO HAVE LIVER BIOPSY TOMORROW WITH IR. NPO AFTER MIDNIGHT. PT TOLERATING CL DIET ALTHOUGH POOR ORAL INTAKE D/T DROWSINESS. NO OTHER CONCERNS AT THIS TIME. CLWR. WCTM.
[2019-11-22 19:20] VITALS: BP 124/83
[2019-11-23 00:19] VITALS: BP 148/94
[2019-11-23 04:53] VITALS: BP 154/64
--- NOTE | 2019-11-23 06:37 | NUR ---
VSS. SEE MAR. SEE CHARTING. FALL PRECAUTIONS IN PLACE. HOURLY ROUNDING FOR SAFETY.
[2019-11-23 06:41] LABS: ABSOLUTE EOSINOPHILS 0.4 thou/uL (0.0-0.7); ABSOLUTE LYMPHOCYTES 1.2 thou/uL (0.8-5.3); ABSOLUTE MONOCYTES 0.4 thou/uL (0.0-1.2); ABSOLUTE NEUTROPHILS 4.9 thou/uL (1.6-8.1); BASOPHILS 0.6 %; EOSINOPHILS 5.7 %; HEMATOCRIT 34.2 % (42.0-52.0); HEMOGLOBIN 11.5 gm/dL (14.0-18.0); LYMPHOCYTES 17.7 %; MCHC 33.7 g/dL (28.0-37.0); MCV 83.1 fL (80.0-100.0); MONOCYTES 5.9 %; MPV 8.4 fl. (7.2-11.1); NUCLEATED RBCS 0 /100WBC; PLATELET COUNT* 83 thou/uL (150-400); POLYS 70.1 %; RBC 4.11 mil/uL (4.50-6.00); RDW-CV 17.5 % (10.5-14.5); WBC 6.9 thou/uL (4.0-11.0)
[2019-11-23 06:56] LABS: ALBUMIN 2.8 g/dL (3.4-5.0); CALCIUM 7.8 mg/dL (8.5-10.1); CREATININE 0.7 mg/dL (0.6-1.3); POTASSIUM 3.4 mmol/L (3.5-5.1); TOTAL BILIRUBIN 2.5 mg/dL (<0.1-1.0); TOTAL PROTEIN 6.6 g/dL (6.4-8.2)
[2019-11-23 07:01] LABS: INR 1.2; PROTIME 12.5 Seconds (9.20-11.50)
[2019-11-23 07:30] VITALS: BP 143/100
[2019-11-23 11:40] VITALS: BP 147/84
[2019-11-23 11:47] VITALS: BP 147/84
[2019-11-23 17:09] VITALS: BP 112/62
[2019-11-24] VITALS: BP 149/95
[2019-11-24 03:58] VITALS: BP 150/94
[2019-11-24 05:35] LABS: HEMATOCRIT 33.6 % (42.0-52.0); HEMOGLOBIN 11.4 gm/dL (14.0-18.0); MCH 28.4 pg (26.0-34.0); MCHC 33.9 g/dL (28.0-37.0); MCV 83.7 fL (80.0-100.0); MPV 8.7 fl. (7.2-11.1); RBC 4.01 mil/uL (4.50-6.00); RDW-CV 17.5 % (10.5-14.5); WBC 10.1 thou/uL (4.0-11.0)
[2019-11-24 05:38] LABS: INR 1.2
[2019-11-24 05:50] LABS: ALBUMIN 2.9 g/dL (3.4-5.0); CALCIUM 7.6 mg/dL (8.5-10.1); CREATININE 0.8 mg/dL (0.6-1.3); MAGNESIUM 1.5 mg/dL (1.8-2.4); POTASSIUM 3.2 mmol/L (3.5-5.1); TOTAL BILIRUBIN 1.4 mg/dL (<0.1-1.0)
[2019-11-24 08:00] VITALS: BP 144/89
--- NOTE | 2019-11-24 08:42 | NUR ---
PT A+O X 4. VERY ANXIOUS @ BEGINNING OF SHIFT AND INTERMITTENTLY THROUGHOUT NIGHT. PRN ATIVAN GIVEN, RIGHT INCISION SITE DRESSING DRY AND INTACT (OLD BLOOD ON HALF OF GAUZE-NO MORE DRAINAGE). NORCO GIVEN FOR INCISION PAIN. DISCUSSED ALCOHOL RELAPSE PREVENTIION WITH PT AND HIS TWIN SISTER. PT VERBALIZED WILLINGNESS TO BE SOBER AND GET HELP FOR DEPRESSION. ENCOURAGED PT AND SISTER (SUPPORT SYSTEM) TO DISCUSS WITH SENIOR CATERING SALES MANAGER. CALL LIGHT IN REACH. HOURLY ROUNDING FOR SAFETY.
[2019-11-24 12:31] VITALS: BP 120/84
--- NOTE | 2019-11-24 15:36 | NUR ---
PER HUMANARC, WORKING TO OBTAIN MEDICAID JUAN RAMON
[2019-11-24 16:06] VITALS: BP 120/71
[2019-11-24 19:11] LABS: ANA INTERPRETATION Positive (())
[2019-11-24] MEDS ORDERED: GLUCOPHAGE850 MG PO (20:49)
[2019-11-24] MEDS ORDERED: PRENATAL PO (20:49)
[2019-11-24] MEDS ORDERED: INDERAL 20 MG T20 M1 PO (20:49)
[2019-11-24] MEDS ORDERED: VITAMIN D21250 MC1 PO (20:49)
[2019-11-24] MEDS ORDERED: CARAFATE 11 GM/10 M1 PO (20:49)
[2019-11-24 20:58] LABS: CHOLESTEROL 126 mg/dL (<200); HDL CHOLESTEROL 41 mg/dL (>40); LDL CHOLESTEROL 76 mg/dL (<100); TC:HDL 3.1 Ratio (Not establshd); TRIGLYCERIDE 45 mg/dL (<150); VLDL 9 mg/dL (<40)
[2019-11-24 21:00] LABS: SERUM ASSESSMENT CLEAR
--- NOTE | 2019-11-24 21:09 | NUR ---
ASSUMED PT CARE AT 0700. PT SR ON DRIVER COURIER. HOURLY ROUNDING COMPLETED. HIGH FALL PRECAUTIONS IN PLACE. CALL LIGHT WITHIN REACH.
[2019-11-25 00:09] VITALS: BP 135/73
[2019-11-25 04:43] VITALS: BP 139/79
[2019-11-25 05:07] LABS: ALBUMIN 2.9 g/dL (3.4-5.0); CREATININE 0.7 mg/dL (0.6-1.3); MAGNESIUM 1.5 mg/dL (1.8-2.4); POTASSIUM 3.6 mmol/L (3.5-5.1); TOTAL BILIRUBIN 1.2 mg/dL (<0.1-1.0); TOTAL PROTEIN 6.9 g/dL (6.4-8.2)
[2019-11-25 07:45] VITALS: BP 122/69
[2019-11-25 08:45] LABS: ABSOLUTE EOSINOPHILS 0.5 thou/uL (0.0-0.7); ABSOLUTE LYMPHOCYTES 1.7 thou/uL (0.8-5.3); ABSOLUTE MONOCYTES 0.7 thou/uL (0.0-1.2); ABSOLUTE NEUTROPHILS 6.9 thou/uL (1.6-8.1); BASOPHILS 0.4 %; EOSINOPHILS 4.6 %; HEMATOCRIT 33.8 % (42.0-52.0); HEMOGLOBIN 11.4 gm/dL (14.0-18.0); LYMPHOCYTES 17.1 %; MCH 28.2 pg (26.0-34.0); MCHC 33.6 g/dL (28.0-37.0); MCV 84.1 fL (80.0-100.0); MONOCYTES 7.6 %; MPV 8.8 fl. (7.2-11.1); NUCLEATED RBCS 0 /100WBC; PLATELET COUNT* 97 thou/uL (150-400); POLYS 70.3 %; RBC 4.02 mil/uL (4.50-6.00); RDW-CV 17.9 % (10.5-14.5); WBC 9.9 thou/uL (4.0-11.0)
[2019-11-25 11:30] VITALS: BP 127/82
[2019-11-25 16:00] VITALS: BP 130/70
[2019-11-25 20:00] VITALS: BP 145/92
[2019-11-26 00:29] VITALS: BP 144/80
[2019-11-26 04:06] VITALS: BP 142/72
[2019-11-26 05:10] LABS: ABSOLUTE EOSINOPHILS 0.3 thou/uL (0.0-0.7); ABSOLUTE LYMPHOCYTES 1.6 thou/uL (0.8-5.3); ABSOLUTE MONOCYTES 0.7 thou/uL (0.0-1.2); ABSOLUTE NEUTROPHILS 5.1 thou/uL (1.6-8.1); BASOPHILS 0.3 %; HEMATOCRIT 34.3 % (42.0-52.0); HEMOGLOBIN 11.4 gm/dL (14.0-18.0); MCHC 33.3 g/dL (28.0-37.0); MONOCYTES 8.9 %; NUCLEATED RBCS 0 /100WBC; PLATELET COUNT* 94 thou/uL (150-400); POLYS 65.8 %; RBC 4.09 mil/uL (4.50-6.00); RDW-CV 18.3 % (10.5-14.5); WBC 7.8 thou/uL (4.0-11.0)
[2019-11-26 05:28] LABS: ALBUMIN 2.8 g/dL (3.4-5.0); CALCIUM 7.8 mg/dL (8.5-10.1); CREATININE 0.7 mg/dL (0.6-1.3); MAGNESIUM 1.7 mg/dL (1.8-2.4); POTASSIUM 3.3 mmol/L (3.5-5.1); TOTAL BILIRUBIN 1.3 mg/dL (<0.1-1.0); TOTAL PROTEIN 6.7 g/dL (6.4-8.2)
--- NOTE | 2019-11-26 08:08 | NUR ---
ASSUMED PATIENT CARE AT 1900. ASSESSMENT COMPLETED CHARTED. PATIENT IS NSR ON THE MONITOR. HOURLY ROUNDING IN PLACE FOR PATIENT SAFETY. CLWR.
[2019-11-26 08:25] VITALS: BP 120/57
[2019-11-26] MEDS ORDERED: PROTONIX40 M1 PO (08:41)
[2019-11-26] MEDS ORDERED: VITAMIN B-1100 M1 PO (08:41)
[2019-11-26 12:00] VITALS: BP 132/88
[2019-11-26 14:59] VITALS: BP 132/88
--- NOTE | 2019-11-26 15:15 | NUR ---
PT DISCHARGED TO HOME IN STABLE CONDITION. PT TAKEN TO FAMILY VEHICLE ACCOMPANIED BY STAFF WITH ALL OF BELONGINGS.
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
== END 2019-11-26 15:10 | disposition home or self-care (01) | DRG 441 ==
LOC: M.ERS 00:26 → M.TBA-ER 03:14 → M.2W 03:14
PROVIDERS: Emergency Medicine Emergency Medical Services; Family Medicine; Internal Medicine; Internal Medicine Gastroenterology; ADMIT Internal Medicine
DX: K76.6 Portal hypertension (principal); I85.11 Secondary esophageal varices with bleeding; E43 Unspecified severe protein-calorie malnutrition; E87.2 Acidosis; I10 Essential (primary) hypertension; F32.9 Major depressive disorder, single episode, unspecified; F41.9 Anxiety disorder, unspecified; Z87.11 Personal history of peptic ulcer disease; K70.10 Alcoholic hepatitis without ascites; E11.65 Type 2 diabetes mellitus with hyperglycemia; K22.70 Barrett's esophagus without dysplasia; E53.8 Deficiency of other specified B group vitamins; D69.6 Thrombocytopenia, unspecified; K74.60 Unspecified cirrhosis of liver; K31.89 Other diseases of stomach and duodenum; K44.9 Diaphragmatic hernia without obstruction or gangrene; E66.01 Morbid (severe) obesity due to excess calories; Z79.1 Long term (current) use of non-steroidal anti-inflammatories (NSAID); Z79.899 Other long term (current) drug therapy; Z68.37 Body mass index [BMI] 37.0-37.9, adult